=== PATIENT | male | born 1955 | race Caucasian/White ===

== ENCOUNTER 2021-08-24 12:55 | Outpatient (RCR) | payer MEDICARE ==
[2021-09-15] MEDS ORDERED: WARF-48 PO (10:57)
[2021-09-15] MEDS ORDERED: CYCL10TA25 PO (10:57)
[2021-09-15] MEDS ORDERED: METO50TA7 PO (10:57)
== END 2021-09-17 | disposition home or self-care (01) ==
LOC: ONC 12:55
PROVIDERS: ATTEND Internal Medicine Hematology & Oncology
DX: C88.4 Extranodal marginal zone B-cell lymphoma of mucosa-associated lymphoid tissue [MALT-lymphoma] (principal)
CPT/HCPCS: 99214

== ENCOUNTER 2021-09-15 06:36 | Outpatient (CLI) | payer MEDICARE ==
[~2021-09-15] VITALS: Ht 182.9 cm; Wt 98.4 kg
[2021-09-15] MEDS ORDERED: WARF-48 PO (10:57)
[2021-09-15] MEDS ORDERED: CYCL10TA25 PO (10:57)
[2021-09-15] MEDS ORDERED: METO50TA7 PO (10:57)
== END 2021-09-15 11:00 | disposition home or self-care (01) ==
LOC: PREOP 06:36
PROVIDERS: ATTEND Surgery
DX: Z01.818 Encounter for other preprocedural examination (principal)

== ENCOUNTER 2023-03-24 21:25 | Emergency (ER) | payer MEDICARE ==
[~2023-03-24] VITALS: Ht 180.4 cm; Wt 91.0 kg
[~2023-03-24 21:25] MED LIST: CYCL10TA25 PO; METO50TA7 PO; WARF-48 PO
[2023-03-24 21:30] VITALS: BP 207/108
--- NOTE | 2023-03-24 21:32 | ED General ---
General Chief Complaint: Altered Mental Status History of Present Illness Date Seen by Provider: Mar 24, 2023 Time Seen by Provider: 21:30 Initial Comments 67-year-old male with PMH of HTN/COPD/active smoker/CVA few years ago/drug abuse, is brought in by EMS for confusion and altered mental status. 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 Patient rode his motorcycle into [place]. ER staff found CBD Gummies in his pocket, and for which he is denying taking them, however there is Gummy pieces stuck in between his teeth indicating he took them. Patient later admitted to [facility]. Denies pain, fall, trauma. Patient is able to answer all questions and follow commands, however he is intoxicated. Allergies and Home Medications Allergies Coded Allergies: citalopram (Verified Allergy, Unknown, Anaphylaxis, 09/15/21) clindamycin (Verified Allergy, Unknown, 09/15/21) Patient Home Medication List Home Medication List Reviewed: Yes Cyclobenzaprine HCl (Cyclobenzaprine HCl) 10 Mg Tablet, 10 MG PO BID, (Reported) Entered as Reported by: KAREN DOWNS on 09/15/21 1057 Metoprolol Succinate (Metoprolol Succinate) 50 Mg Tab.er.24h, 50 MG PO HS, (Reported) Entered as Reported by: KAREN DOWNS on 09/15/21 1057 Warfarin Sodium (Warfarin Sodium) 5 Mg Tablet, 5 MG PO HS, (Reported) Entered as Reported by: KAREN DOWNS on 09/15/21 1057 Review of Systems Review of Systems Constitutional: no symptoms reported Respiratory: no symptoms reported Cardiovascular: no symptoms reported Psychiatric/Neurological: See HPI, Other Past [id number] Hx Immunizations Up To Date First/Initial COVID19 Vaccinat: yes Second COVID19 Vaccination Julien: yes Seasonal Allergies Seasonal Allergies: No Past Medical History Surgeries: Yes (R shoulder sx, lap urvashi, ventral hernia, L forearm fx x2) Eye Surgery Respiratory: No Cardiac: Yes Hypertension Neurological: Yes Neuropathy, Stroke Genitourinary: No Gastrointestinal: Yes (hx h-pylori, hx hep c, ) Diverticulosis, Polyps Musculoskeletal: Yes Fractures Endocrine: No HEENT: Yes (cataracts removed) Psychosocial: No Integumentary: No Blood Disorders: No Physical Exam Vital Signs Vital Signs - First Documented 03/24/23 21:30 Temp 36.4 Pulse 78 Resp 16 B/P (MAP) 207/108 (141) Capillary Refill : Height, Weight, BMI Height: '" Weight: lbs. oz. kg; 29.41 BMI Method: General Appearance: No Apparent Distress, WD/WN HEENT: PERRL/EOMI, Pharynx Normal Neck: Full Range of Motion, Normal Inspection, Non Tender Respiratory: Chest Non Tender, Lungs Clear, Normal Breath Sounds Cardiovascular: Regular Rate, Rhythm, No Edema Gastrointestinal: Non Tender, Soft Neurologic/Psychiatric: Alert, Oriented x3, hip hop dancer II-XII Norm as Tested, Other (Patient is intoxicated) Skin: Normal Color Focused Exam Lactate Level 03/24/23 22:00: Lactic Acid Level 2.31*H Lactic Acid Level Laboratory Tests Test 03/24/23 22:00 Lactic Acid Level 2.31 MMOL/L (0.50-2.00) *H Progress/Results/Core Measures Suspected Sepsis SIRS Temperature: Pulse: Respiratory Rate: Laboratory Tests 03/24/23 22:00: White Blood Count 4.9 Blood Pressure / Mean: 03/24/23 22:00: Lactic Acid Level 2.31*H Laboratory Tests 03/24/23 22:00: Creatinine 1.02, INR Comment 0.9, Platelet Count 260, Total Bilirubin 0.3 Results/Orders Lab Results Laboratory Tests Test 03/24/23 22:00 03/24/23 22:56 Range/Units White Blood Count 4.9 4.3-11.0 10^3/uL Red Blood Count 5.43 4.30-5.52 10^6/uL Hemoglobin 16.9 13.3-17.7 g/dL Hematocrit 51 40-54 % Mean Corpuscular Volume 94 80-99 fL Mean Corpuscular Hemoglobin 31 25-34 pg Mean Corpuscular Hemoglobin Concent 33 32-36 g/dL Red Cell Distribution Width 13.3 10.0-14.5 % Platelet Count 260 130-400 10^3/uL Mean Platelet Volume 8.7 L 9.0-12.2 fL Immature Granulocyte % (Auto) 0 % Neutrophils (%) (Auto) 47 42-75 % Lymphocytes (%) (Auto) 29 12-44 % Monocytes (%) (Auto) 19 H 0-12 % Eosinophils (%) (Auto) 3 0-10 % Basophils (%) (Auto) 1 0-10 % Neutrophils # (Auto) 2.3 1.8-7.8 10^3/uL Lymphocytes # (Auto) 1.5 1.0-4.0 10^3/uL Monocytes # (Auto) 0.9 0.0-1.0 10^3/uL Eosinophils # (Auto) 0.2 0.0-0.3 10^3/uL Basophils # (Auto) 0.1 0.0-0.1 10^3/uL Immature Granulocyte # (Auto) 0.0 0.0-0.1 10^3/uL Neutrophils % (Manual) 40 % Lymphocytes % (Manual) 36 % Monocytes % (Manual) 21 % Eosinophils % (Manual) 3 % Prothrombin Time 12.1 L 12.2-14.7 SEC INR Comment 0.9 0.8-1.4 Activated Partial Thromboplast Time 27 24-35 SEC Sodium Level 135 135-145 MMOL/L Potassium Level 3.5 L 3.6-5.0 MMOL/L Chloride Level 100 98-107 MMOL/L Carbon Dioxide Level 24 21-32 MMOL/L Anion Gap 11 5-14 MMOL/L Blood Urea Nitrogen 19 H 7-18 MG/DL Creatinine 1.02 0.60-1.30 MG/DL Estimat Glomerular Filtration Rate 81 BUN/Creatinine Ratio 19 Glucose Level 75 70-105 MG/DL Lactic Acid Level 2.31 *H 0.50-2.00 MMOL/L Calcium Level 11.8 H 8.5-10.1 MG/DL Corrected Calcium 8.5-10.1 MG/DL Magnesium Level 2.2 1.6-2.4 MG/DL Total Bilirubin 0.3 0.1-1.0 MG/DL Aspartate Amino Transf (AST/SGOT) 26 5-34 U/L Alanine Aminotransferase (ALT/SGPT) 22 0-55 U/L Alkaline Phosphatase 156 H 40-136 U/L Troponin I < 0.30 <0.30 NG/ML Total Protein 8.2 6.4-8.2 GM/DL Albumin 4.7 H 3.2-4.5 GM/DL Serum Alcohol < 10 <10 MG/DL Urine Color YELLOW Urine Clarity CLEAR Urine pH 6.0 5-9 Urine Specific [place] 1.010 L 1.016-1.022 Urine Protein NEGATIVE NEGATIVE Urine Glucose (UA) NEGATIVE NEGATIVE Urine Ketones NEGATIVE NEGATIVE Urine Nitrite NEGATIVE NEGATIVE Urine Bilirubin NEGATIVE NEGATIVE Urine Urobilinogen 0.2 < = 1.0 MG/DL Urine Leukocyte Esterase NEGATIVE NEGATIVE Urine RBC (Auto) TRACE-L H NEGATIVE Urine RBC 2-5 H /HPF Urine WBC NONE /HPF Urine Squamous Epithelial Cells 0-2 /HPF Urine Crystals NONE /LPF Urine Bacteria NEGATIVE /HPF Urine Casts NONE /LPF Urine Mucus NEGATIVE /LPF Urine Culture Indicated NO Urine Opiates Screen NEGATIVE NEGATIVE Urine Oxycodone Screen NEGATIVE NEGATIVE Urine Methadone Screen NEGATIVE NEGATIVE Urine Barbiturates Screen NEGATIVE NEGATIVE Ur Tricyclic Antidepressants Screen NEGATIVE NEGATIVE Urine Phencyclidine Screen NEGATIVE NEGATIVE Urine Amphetamines Screen POSITIVE H NEGATIVE Urine Methamphetamines Screen POSITIVE H NEGATIVE Urine Benzodiazepines Screen NEGATIVE NEGATIVE Urine Cocaine Screen NEGATIVE NEGATIVE Urine Cannabinoids Screen POSITIVE H NEGATIVE My Orders Orders - CINDY WEINBERG MD Ct Head Wo-R/O Stroke (03/24/23 21:32) Chest 1 View Ap/Pa Only (03/24/23 21:32) Alcohol (03/24/23 21:33) Cbc And Automated Diff (03/24/23 21:33) Comprehensive Metabolic Panel (03/24/23 21:33) Drug Screen Stat (Urine) (03/24/23 21:33) Lactic Acid Analyzer (03/24/23 21:33) Magnesium (03/24/23 21:33) Protime With Inr (03/24/23 21:33) Partial Thromboplastin Time (03/24/23 21:33) Ua Culture If Indicated (03/24/23 21:33) Troponin I Fs (03/24/23 21:33) Continuous Ekg Monitoring (03/24/23 21:53) Ekg Tracing (03/24/23 21:53) Manual Differential (03/24/23 22:00) 1/2 Ns Iv Solution 1000 Ml (1/2 Ns Iv So (03/24/23 22:19) Vital Signs/I&O 03/24/23 21:30 Temp 36.4 Pulse 78 Resp 16 B/P (MAP) 207/108 (141) Capillary Refill : Progress Note : Progress Note 1. AMS DUE TO DRUG INTOXICATION/METHAMPHETAMINE AND MARIJUANA: - CT HEAD: no acute findings - CBC/ CMP: unremarkable - Troponin undetected - s. ETOH negative -Patient had marijuana/CBD Gummies and a bottle in his pocket and also a bottle of meth. Police was called and patient will be discharged to the police. - UA/ UDS:positive for methamphetamine and marijuana - Adequate fluid intake advised - Advised to stop using drugs - Advised to use a helmet while driving a motorcycle, and advised not to drive at all when under the influence of alcohol or drugs due to danger to self and others. - Follow up with PCP in 7 days - Return to ER as needed -The patient was seen in the ED, and treated appropriately to presentation at a specific point in time. Patient is informed that there is a possibility that disease and illness can evolve and change in acuity rapidly or slowly after patient is discharged from the ER. Precautionary advice given to the patient for immediate return to ER if symptoms worsen or do not resolve, and to seek emergency care sooner rather than later. Pt also advised on the importance of PCP follow up and compliance with management and follow up plan with PCP and/or specialist, as this is part of the management plan. Pt verbally expressed understanding. Diagnostic Imaging Diagonstic Imaging: Xray, CT Plain Films/CT/US/NM/MRI: chest, head Departure Impression Primary Impression: Drug intoxication Additional Impressions: Methamphetamine abuse Marijuana abuse Disposition: 21 DIS/[address]/LAW ENFORCE Condition: Stable Departure-Patient Inst. Patient Instructions: Marijuana Use and Addiction (DC), Cannabis use disorder Add. Discharge Instructions: - Adequate fluid intake advised - Advised to stop using drugs - Advised to use a helmet while driving a motorcycle, and advised not to drive at all when under the influence of alcohol or drugs due to danger to self and others. - Follow up with PCP in 7 days - Return to ER as needed All discharge instructions reviewed with patient and/or family. Voiced understanding. CINDY WEINBERG MD Mar 24, 2023 21:32
[2023-03-24 22:18] LABS: BASOPHILS # (AUTO) 0.1 10^3/uL (0.0-0.1); BASOPHILS % (AUTO) 1 % (0-10); EOSINOPHILS # (AUTO) 0.2 10^3/uL (0.0-0.3); EOSINOPHILS % (AUTO) 3 % (0-10); HEMATOCRIT 51 % (40-54); HEMOGLOBIN 16.9 g/dL (13.3-17.7); LYMPHOCYTES # (AUTO) 1.5 10^3/uL (1.0-4.0); LYMPHOCYTES % (AUTO) 29 % (12-44); MEAN CORPUSCULAR HEMOGLOBIN 31 pg (25-34); MEAN CORPUSCULAR HGB CONC 33 g/dL (32-36); MEAN CORPUSCULAR VOLUME 94 fL (80-99); MEAN PLATELET VOLUME 8.7 fL (9.0-12.2); MONOCYTES # (AUTO) 0.9 10^3/uL (0.0-1.0); MONOCYTES % (AUTO) 19 % (0-12); NEUTROPHILS # (AUTO) 2.3 10^3/uL (1.8-7.8); NEUTROPHILS % (AUTO) 47 % (42-75); PLATELET COUNT 260 10^3/uL (130-400); WHITE BLOOD COUNT 4.9 10^3/uL (4.3-11.0)
[2023-03-24] MEDS ORDERED: 1/2 NS IV SOLUTION 1000 ML 1,000 ML IV STA (22:19)
[2023-03-24 22:29] LABS: INR 0.9 (0.8-1.4); PROTHROMBIN TIME PATIENT 12.1 SEC (12.2-14.7)
[2023-03-24 22:34] LABS: BILIRUBIN,TOTAL 0.3 MG/DL (0.1-1.0); CALCIUM 11.8 MG/DL (8.5-10.1); CARBON DIOXIDE 24 MMOL/L (21-32); CHLORIDE 100 MMOL/L (98-107); MAGNESIUM 2.2 MG/DL (1.6-2.4); POTASSIUM 3.5 MMOL/L (3.6-5.0); SODIUM 135 MMOL/L (135-145); TOTAL PROTEIN 8.2 GM/DL (6.4-8.2)
[2023-03-24 22:40] LABS: ALANINE AMINOTRANSFERASE 22 U/L (0-55); ALKALINE PHOSPHATASE 156 U/L (40-136); BUN/CREATININE RATIO 19; CREATININE SERUM 1.02 MG/DL (0.60-1.30); GFR ESTIMATED 81; GLUCOSE 75 MG/DL (70-105)
[2023-03-24 22:44] LABS: ALBUMIN 4.7 GM/DL (3.2-4.5); EOSINOPHILS % (MANUAL) 3 %; LYMPHOCYTES % (MANUAL) 36 %; MONOCYTES % (MANUAL) 21 %; NEUTROPHILS % (MANUAL) 40 %
[2023-03-24 23:01] LABS: BILIRUBIN,URINE NEGATIVE (NEGATIVE); CLARITY,URINE CLEAR; COLOR,URINE YELLOW; GLUCOSE, URINE (UA) NEGATIVE (NEGATIVE); KETONES,URINE NEGATIVE (NEGATIVE); LEUKOCYTE ESTERASE ,URINE NEGATIVE (NEGATIVE); NITRITE,URINE NEGATIVE (NEGATIVE); PROTEIN,URINE NEGATIVE (NEGATIVE)
[2023-03-24 23:03] LABS: BACTERIA,URINE NEGATIVE /HPF; SQUAMOUS EPITHELIAL CELL,UR 0-2 /HPF
[2023-03-24 23:11] LABS: AMPHETAMINE SCREEN, URINE POSITIVE (NEGATIVE); BARBITURATE SCREEN URINE NEGATIVE (NEGATIVE); CANNABINOID SCREEN, URINE POSITIVE (NEGATIVE); COCAINE SCREEN URINE NEGATIVE (NEGATIVE); METHADONE STAT NEGATIVE (NEGATIVE); OPIATE SCREEN URINE NEGATIVE (NEGATIVE); OXYCODONE STAT NEGATIVE (NEGATIVE); TRICYCLIC ANTIDEPRESSANTS SCRE NEGATIVE (NEGATIVE)
--- NOTE | 2023-03-25 08:14 | Diagnostic Imaging Report ---
INDICATION: Altered mental status TECHNIQUE: Single view chest 10:11 PM CORRELATION STUDY: None FINDINGS: Heart size upper limits normal. Mediastinum is prominent and widened. Vasculature overall within normal lives. Hypoventilation. Given this, lung faulkner are generally clear. Prior surgical change right humeral head. IMPRESSION: 1. Prominent, widened mediastinum. Some of this may be accentuated by technique, the possibility of adenopathy, mass and/or aneurysmal dilatation of thoracic aorta is not excluded. If indicated, CT imaging of the chest would be recommended. Report was FAXED and called to nurse Malina by dayna at 8:12a.m. Dictated by: Dictated on workstation # [id number]
--- NOTE | 2023-03-25 08:40 | Diagnostic Imaging Report ---
PROCEDURE: CT head wo r/o stroke. TECHNIQUE: Multiple contiguous axial images were obtained through the brain without the use of intravenous contrast. Auto Exposure Controls were utilized during the CT exam to meet ALARA standards for radiation dose reduction. INDICATION: 67-year-old male, altered mental status, confusion. CORRELATION STUDY: None FINDINGS: General is atrophic changes with prominence of ventricles and sulci. Findings compatible with previous infarct encephalomalacia of the medial right occipital lobe. No regional areas of edema. No intracranial hemorrhage. No appreciable midline shift or mass effect. Bony calvarium is intact. Paranasal sinuses and mastoid air cells clear. IMPRESSION: 1. Negative for acute intracranial abnormality. Initial report was provided by [facility]. Dictated by: Dictated on workstation # [id number]
== END 2023-03-25 00:17 ==
LOC: EDUNIT# 21:25 → ER FS 21:26
DX: F12.929 Cannabis use, unspecified with intoxication, unspecified (principal); F15.10 Other stimulant abuse, uncomplicated; F12.10 Cannabis abuse, uncomplicated
CPT/HCPCS: 36415; 70450; 71045; 80053; 80306; 81000; 83605; 83735; 84484; 85007; 85027; 85610; 85730; 93005; 96360; 99284; G0480; 80320